=== PATIENT | female | born 1990 | race Caucasian/White ===

== ENCOUNTER 2017-03-28 06:50 | Outpatient (CLI) | payer OTHER, SELFPAY ==
[2017-03-28 07:15] VITALS: BMI 26.2
[2017-03-28 08:34] LABS: Hematocrit 36.1 % (37-47); Hemoglobin 12.4 g/dl (12.0-15.0); Mean Corp Hgb Conc 34.3 g/gl (32-36); Mean Corpuscular Hgb 32.5 pg (27.0-32.0); Mean Corpuscular Volume 94.8 fL (81-99); Mean Platelet Vol. 9.2 fl (6.2-12.0); Platelet Count 212 K/mm3 (150-450); RBC Distribution Width CV 13.7 % (11.6-14.6); RBC Distribution Width SD 45.2 fl (35.1-43.9); Red Blood Count 3.81 M/mm3 (4.2-5.4); White Blood Count 8.2 K/mm3 (4.4-11.0)
[2017-03-28 08:48] LABS: Scan Indicated on CBC? Y/N NO
[2017-03-28 08:59] LABS: Fibrinogen 357 mg/dl (203-444)
--- NOTE | 2017-03-28 10:06 | OB.TRI.NOTE ---
History of Present Illness Date of Service: 03/28/17 Was patient seen by the physician?: Yes Reason For Visit: BLEEDING Date of Service: 03/28/17 Gestational age: 23 week History of Present Illness: 26 yo @ 23 weeks with a history of marginal previa presents with brown vaginal bleeding this morning. she also almost fell yesterday and hit her abdomen but no abdominal pain since or regular ctx. She denies any recent intercourse and feels good movement Home Medications Medication Instructions Recorded 1 tab PO QDAY 02/17/17 vitamin,calcium,[id number] acid tablet Allergies red dye Allergy (Verified 03/17/17 13:26) Unknown
== END 2017-03-28 09:30 | disposition home or self-care (01) ==
LOC: WPOUT 07:04 → WP 07:04
PROVIDERS: Family Provider Family Medicine; PCP Family Medicine; Visit Provider Obstetrics & Gynecology
DX: O44.32 Partial placenta previa with hemorrhage, second trimester (principal); Z3A.23 23 weeks gestation of pregnancy
CPT/HCPCS: 36415; 59025; 59050; 85027; 85384; 99218; G0378

== ENCOUNTER → 2017-03-31 14:09 | Outpatient (CLI) | payer OTHER, SELFPAY ==
[2017-03-31 15:09] LABS: Fibrinogen 332 mg/dl (203-444)
== END ==
PROVIDERS: Family Provider Family Medicine; PCP Family Medicine; Visit Provider Obstetrics & Gynecology
DX: O44.20 Partial placenta previa NOS or without hemorrhage, unspecified trimester (principal); Z3A.00 Weeks of gestation of pregnancy not specified
CPT/HCPCS: 36415; 85384

== ENCOUNTER → 2017-04-19 11:42 | Outpatient (CLI) | payer OTHER, SELFPAY ==
[2017-04-19 13:19] LABS: Absolute Lymphocyte Count 1.76 X10^3/ul (0.83-4.51); Absolute Neutrophil Count 6.9 X10^3/uL (2.0-7.7); Basophil# 0.02 X10^3/uL; Basophil% 0.2 % (0-1); Eosinophil# 0.11 X10^3/uL; Eosinophils% 1.2 % (0-5); Hematocrit 36.2 % (37-47); Hemoglobin 12.1 g/dl (12.0-15.0); Lymphocyte # 1.76 X10^3/ul (4.0); Lymphocyte % 18.5 % (19-41); Mean Corp Hgb Conc 33.4 g/gl (32-36); Mean Corpuscular Hgb 31.9 pg (27.0-32.0); Mean Corpuscular Volume 95.5 fL (81-99); Mean Platelet Vol. 9.6 fl (6.2-12.0); Monocyte% 7.3 % (0-10); Neutrophil # 6.89 X10^3/uL (2.7-7.7); Neutrophil % 72.3 % (47-70); POSITIVE COUNT NO; POSITIVE DIFFERENTIAL NO; POSITIVE MORPHOLOGY NO; Platelet Count 234 K/mm3 (150-450); RBC Distribution Width CV 13.5 % (11.6-14.6); Red Blood Count 3.79 M/mm3 (4.2-5.4); White Blood Count 9.5 K/mm3 (4.4-11.0)
[2017-04-19 13:36] LABS: Glucose Challenge Gest 1H 50g 77 mg/dL (70-140)
== END ==
PROVIDERS: Family Provider Family Medicine; PCP Family Medicine; Visit Provider Obstetrics & Gynecology
DX: Z34.01 Encounter for supervision of normal first pregnancy, first trimester (principal)
CPT/HCPCS: 36415; 82950; 85025

== ENCOUNTER → 2017-04-21 18:14 | Outpatient (CLI) | payer OTHER, SELFPAY | PROVIDERS: Family Provider Family Medicine; PCP Family Medicine; Visit Provider Obstetrics & Gynecology | DX: Z34.90 Encounter for supervision of normal pregnancy, unspecified, unspecified trimester (principal) | CPT/HCPCS: 87077; 87086; 87088; 87186 ==

== ENCOUNTER → 2017-05-03 12:21 | Outpatient (CLI) | payer OTHER, SELFPAY ==
--- NOTE | 2017-05-03 12:21 | US_ITS ---
STUDY: SECOND AND THIRD TRIMESTER OBSTETRICAL ULTRASOUND - LIMITED REASON FOR EXAM: Female, 26 years old. Follow-up low-lying placenta. LMP: 10/17/2016 PRIOR ULTRASOUND: 02/28/2017. TECHNIQUE: Transabdominal ultrasound evaluation was performed. FINDINGS: There is a single intrauterine fetus. The fetus is in a cephalic presentation. There is demonstrated cardiac activity with a heart rate of 142 bpm. There is a normal amniotic fluid volume. The largest amniotic fluid pocket measures 3.1 cm. The amniotic fluid index (ARASH) is 9.7 cm. The placenta is anterior in location and is not low lying. There are Grade 1 placental changes. The cervix measures 4.6 cm in length. BIOMETRY: BPD: 7.1: 28 weeks, 4 days HC: 26.4: 28 weeks, 6 days AC: 24.1: 28 weeks, 3 days FL: 5.5: 29 weeks, 2 days Age by LMP: 26 weeks, 2 days. NATIVIDAD by LMP: 07/24/2017. age by prior US: 26 weeks, 5 days. NATIVIDAD by prior US: 07/21/2017. age by current US: 28 weeks, 6 days. NATIVIDAD by current US: 07/20/2017. Estimated weight: 1269 grams, +/- 185 grams, 53 percentile. Gender: US/OB Limited With Biometrics IMPRESSION: Single live fetus in a vertex presentation. survey not performed on this exam. Placenta is grade 1 and is no longer low-lying. Cervix is closed. age by prior US: 26 weeks, 5 days. NATIVIDAD by prior US: 07/21/2017. Estimated weight: 1269 grams, +/- 185 grams, 53 percentile. Electronically Signed: Pepe Campo MD at 8:56 EDT , Service support ,
== END ==
PROVIDERS: Family Provider Family Medicine; PCP Family Medicine; Visit Provider Obstetrics & Gynecology
DX: O44.20 Partial placenta previa NOS or without hemorrhage, unspecified trimester (principal); Z3A.00 Weeks of gestation of pregnancy not specified
CPT/HCPCS: 76816

== ENCOUNTER → 2017-05-05 17:53 | Outpatient (CLI) | payer OTHER, SELFPAY | PROVIDERS: Family Provider Family Medicine; PCP Family Medicine; Visit Provider Nurse Practitioner Women's Health | DX: O23.42 Unspecified infection of urinary tract in pregnancy, second trimester (principal); Z3A.00 Weeks of gestation of pregnancy not specified | CPT/HCPCS: 87086; 87088 ==

== ENCOUNTER → 2017-06-20 12:18 | Outpatient (CLI) | payer OTHER, SELFPAY ==
--- NOTE | 2017-06-20 12:19 | US_ITS ---
STUDY: SECOND AND THIRD TRIMESTER OBSTETRICAL ULTRASOUND - LIMITED REASON FOR EXAM: Female, 26 years old. Small for gestational age. Evaluate growth. LMP: October 17, 2016. PRIOR ULTRASOUND: OB ultrasound May 03, 2017. TECHNIQUE: Transabdominal ultrasound evaluation was performed. FINDINGS: There is a single intrauterine fetus. The fetus is in a cephalic presentation. There is demonstrated cardiac activity with a heart rate of 153 bpm. There is a normal amniotic fluid volume. The largest amniotic fluid pocket measures 4.26 cm. The amniotic fluid index (ARASH) is 11.9 cm. The placenta is anterior in location and is not low lying. There are Grade 2 placental changes. The cervix measures 4.8 cm cm in length and is closed. Adnexa are not visualized. BIOMETRY: BPD: 8.56 cm: 34 weeks, 4 days HC: 31.14 cm: 34 weeks, 6 days AC: 30.72 cm: 34 weeks, 5 days FL: 6.87 cm: 35 weeks, 2 days OFD: 10.92 cm: 35 weeks, 1 days CI: 78% FL/BPD: 80% FL/AC: 22% HC/AC: 1.01 Age by LMP: 35 weeks, 1 days. NATIVIDAD by LMP: July 24, 2017. age by prior US: 35 weeks, 5 days. NATIVIDAD by prior US: July 20, 2017. age by current US: 34 weeks, 6 days. NATIVIDAD by current US: July 26, 2017. Estimated weight: 2527 grams, +/- 369 grams, 38 percentile. US/OB Limited With Biometrics IMPRESSION: 1. Single living intrauterine fetus in cephalic presentation at estimated gestational age of 34 weeks, 6 days. By today's study, the estimated date of delivery is July 26, 2017, compared with July 20, 2017 by previous exam in July 24, 2017 by LMP. 2. Estimated weight is 2527 g. 3. The cervix is closed. Cervical length is 4.8 cm. 4. Normal amniotic fluid volume with an index of 11.9 cm. 5. Grade 2 anterior placenta is not low-lying. Electronically Signed: Jerry Quinones MD at 14:50 EDT , Service support ,
== END ==
PROVIDERS: Family Provider Family Medicine; PCP Family Medicine; Visit Provider Nurse Practitioner Women's Health
DX: O36.5930 Maternal care for other known or suspected poor fetal growth, third trimester, not applicable or unspecified (principal); Z3A.00 Weeks of gestation of pregnancy not specified
CPT/HCPCS: 76816

== ENCOUNTER → 2017-06-30 18:49 | Outpatient (CLI) | payer OTHER, SELFPAY ==
[2017-06-30 21:18] LABS: Group B Strep DNA By PCR Negative (Negative); Internal Control PASS; Probe Check PASS; Specimen Processing Control PASS
== END ==
PROVIDERS: Family Provider Family Medicine; PCP Family Medicine; Visit Provider Nurse Practitioner Women's Health
DX: Z34.90 Encounter for supervision of normal pregnancy, unspecified, unspecified trimester (principal)
CPT/HCPCS: 87081; 87653

== ENCOUNTER 2017-07-20 08:20 | Outpatient (CLI) | payer OTHER, SELFPAY ==
--- NOTE | 2017-07-20 08:20 | DT_ITS ---
This patient was seen during an EMR downtime July 18, 2017 - July 25, 2017. This patient may have a combination of paper and electronic documentation or all paper documentation. All documentation is viewable within the e-chart portion of [employer] for each patient visit.
== END 2017-07-20 09:25 | disposition home or self-care (01) ==
LOC: WPOUT 17:23
PROVIDERS: Family Provider Family Medicine; PCP Family Medicine; Visit Provider Obstetrics & Gynecology
DX: O47.9 False labor, unspecified (principal); Z3A.00 Weeks of gestation of pregnancy not specified
CPT/HCPCS: 59025; 59050; 99218; J7120; A4216; G0378

== ENCOUNTER 2017-07-21 08:19 | Inpatient (IN) | payer OTHER, SELFPAY ==
--- NOTE | 2017-07-07 07:20 | PCM.HP.OB ---
- Problem List (1) ASCUS with positive high risk HPV Status: Acute Comment: neg colp. repeat pap PP (2) screening encounter Status: Acute Comment: Sequential Screen Negative- Reviewed by [facility] (3) Marginal placenta previa Status: Acute (4) Rubella non-immune status, antepartum Status: Acute Comment: MMR PP (5) Supervision of normal Status: Acute Qualifiers: Comment: PRR NATIVIDAD 07/24/17 Rusty; Boy: Jean Carlos History Allergies red dye Allergy (Verified 06/30/17 13:14) Unknown Smoking Status: Never smoker
--- NOTE | 2017-07-21 08:19 | DT_ITS ---
This patient was seen during an EMR downtime July 18, 2017 - July 25, 2017. This patient may have a combination of paper and electronic documentation or all paper documentation. All documentation is viewable within the e-chart portion of [employer] for each patient visit.
[2017-07-25 11:23] LABS: Hematocrit 37.8 % (37-47); Mean Corp Hgb Conc 34.4 g/gl (32-36); Mean Corpuscular Hgb 32.3 pg (27.0-32.0); Mean Corpuscular Volume 93.8 fL (81-99); Mean Platelet Vol. 10.2 fl (6.2-12.0); Platelet Count 236 K/mm3 (150-450); RBC Distribution Width CV 13.8 % (11.6-14.6); Red Blood Count 4.03 M/mm3 (4.2-5.4); Scan Indicated on CBC? Y/N NO; White Blood Count 13.6 K/mm3 (4.4-11.0)
== END 2017-07-22 18:00 | disposition home or self-care (01) | DRG 775 ==
PROVIDERS: Admitting Provider Obstetrics & Gynecology; Family Provider Family Medicine; PCP Family Medicine; Visit Provider Obstetrics & Gynecology
DX: O70.0 First degree perineal laceration during delivery (principal); Z3A.39 39 weeks gestation of pregnancy; Z37.0 Single live birth
CPT/HCPCS: 59025; 59050; 85027; 86850; 86900; 99218; J7120; A4216; G0378

== ENCOUNTER 2017-07-29 15:15 | Outpatient (CLI) | payer OTHER, SELFPAY | END 2017-07-29 16:15 | disposition home or self-care (01) | LOC: WPOUT 15:18 → WP 15:18 | PROVIDERS: Family Provider Family Medicine; PCP Family Medicine; Visit Provider Obstetrics & Gynecology | DX: Z39.1 Encounter for care and examination of lactating mother (principal) | CPT/HCPCS: 96152 ==

== ENCOUNTER 2017-08-01 15:15 | Outpatient (CLI) | payer OTHER, SELFPAY | END 2017-08-01 15:30 | disposition home or self-care (01) | LOC: WPOUT 15:18 → WP 15:19 | PROVIDERS: Family Provider Family Medicine; PCP Family Medicine; Visit Provider Obstetrics & Gynecology | DX: Z00.00 Encounter for general adult medical examination without abnormal findings (principal) ==

== ENCOUNTER 2017-08-25 16:30 | Outpatient (CLI) | payer OTHER, SELFPAY | END 2017-08-25 17:30 | disposition home or self-care (01) | LOC: WPOUT 16:35 → WP 16:36 | PROVIDERS: Family Provider Family Medicine; PCP Family Medicine; Visit Provider Obstetrics & Gynecology | DX: Z39.1 Encounter for care and examination of lactating mother (principal) | CPT/HCPCS: 96152 ==

== ENCOUNTER → 2017-08-25 17:30 | Outpatient (CLI) | payer OTHER, SELFPAY ==
[2017-09-01 09:59] LABS: HPV Reflexed? NOT INDICATED
== END ==
PROVIDERS: Family Provider Family Medicine; PCP Family Medicine; Visit Provider Obstetrics & Gynecology
DX: Z12.4 Encounter for screening for malignant neoplasm of cervix (principal)
CPT/HCPCS: 88175; G0145

== ENCOUNTER → 2017-08-25 17:30 | Outpatient (CLI) | payer OTHER, SELFPAY | PROVIDERS: Visit Provider Obstetrics & Gynecology | DX: Z12.4 Encounter for screening for malignant neoplasm of cervix (principal) ==

== ENCOUNTER → 2017-09-01 14:05 | Outpatient (CLI) | payer OTHER, SELFPAY ==
--- NOTE | 2017-09-01 14:06 | US_ITS ---
STUDY: ULTRASOUND BREAST - RIGHT REASON FOR EXAM: Female, 26 years old. Right breast lump. TECHNIQUE: Axial and longitudinal images of the RIGHT breast were performed with a high resolution ultrasound transducer. COMPARISON: None. FINDINGS: RIGHT Breast: There is a 5.7 cm x 6.8 cm x 1.1 cm cyst at the 12:00 position of breast 1 cm from the nipple. Medial to the palpable abnormality, #3 smaller cysts. The larger measures 2 cm x 1.3 cm. US/Breast Limited Unilateral IMPRESSION: Breast cysts. The largest measures 5.7 cm x 6.8 cm x 4.1 cm. This corresponds to the palpable abnormality. ASSESSMENT CATEGORY: BIRADS Category 2: Benign. A letter regarding these results will be sent to the patient by the facility within 30 days. Electronically Signed: Rojelio Mcmullen MD at 7:54 EDT Tel [phone], Service support ,
== END ==
PROVIDERS: Family Provider Family Medicine; PCP Family Medicine; Visit Provider Obstetrics & Gynecology
DX: N63.10 Unspecified lump in the right breast, unspecified quadrant (principal)
CPT/HCPCS: 76642

== ENCOUNTER 2017-12-15 15:45 | Outpatient (RCR) | payer OTHER, SELFPAY ==
--- NOTE | 2017-05-02 12:19 | MASS.EVAL ---
Massage Therapy Evaluation: Evaluation Date: 05/02/2017 The patient is a 26 y.o. female, referred by Dr. May with a diagnosis of low back pain. The patient is 28 weeks with a due date of July 24, 2017. She presents today with symptoms of aching primarily through the low back but also in the neck and shoulders. She attributes the low back ache to . The neck and shoulder tension and aching are fairly constant. 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 Work is also a contributing factor to the low back pain. She rates her overall health to be in good condition with no limitations to daily living activities. She list no medications other than vitamins. Goals: 1. decrease muscle tension 2. decrease low back pain 3. promote relaxation Her first treatment consisted of a one hour massage using moderate to deep pressure to the upper body. She has very high tension through the neck, shoulders, interscapular area and forearms with many knots throughout. She also had tension bilaterally through the hips. She responded very well to treatment. There was a moderate decrease to over all muscle tension. I feel that she is a good candidate for massage at this time. I plan on seeing her on an as needed basis for a total of 10 one hour massages. Yahaira Alonso LMT
--- NOTE | 2017-07-19 10:45 | DT_ITS ---
This patient was seen during an EMR downtime July 18, 2017 - July 25, 2017. This patient may have a combination of paper and electronic documentation or all paper documentation. All documentation is viewable within the e-chart portion of [employer] for each patient visit.
--- NOTE | 2018-02-02 13:00 | DS.PCM_ITS ---
Massage Therapy Discharge Summary: Initial Evaluation: 05/02/2017 Diagnosis: Back pain No. of Visits: 7 of Date of last visit: 12/15/2017 Goals: Decreased low back pain Decreased overall muscle tension Decreased stress This patient is being discharged from our care at the [facility]. Thank you, Yahaira Alonso LMT
== END 2017-12-15 19:00 | disposition home or self-care (01) ==
LOC: MASS 15:45
PROVIDERS: Family Provider Family Medicine; PCP Family Medicine; Visit Provider Obstetrics & Gynecology
DX: M54.9 Dorsalgia, unspecified (principal)
CPT/HCPCS: 97124

== ENCOUNTER → 2019-03-30 16:44 | Outpatient (CLI) | payer OTHER, SELFPAY ==
[2019-03-25 11:34] VITALS: BMI 25.2
== END ==
PROVIDERS: PCP Family Medicine; Referring Provider Obstetrics & Gynecology; Visit Provider Obstetrics & Gynecology
DX: O20.0 Threatened abortion (principal); Z3A.00 Weeks of gestation of pregnancy not specified
CPT/HCPCS: 36415; 84702; 86850; 86900; 86901

== ENCOUNTER → 2019-04-01 16:22 | Outpatient (CLI) | payer OTHER, SELFPAY ==
[2019-03-25 11:34] VITALS: BMI 25.2
== END ==
PROVIDERS: PCP Family Medicine; Visit Provider Obstetrics & Gynecology
DX: O20.0 Threatened abortion (principal); Z3A.00 Weeks of gestation of pregnancy not specified
CPT/HCPCS: 84702

== ENCOUNTER → 2019-04-05 13:51 | Outpatient (CLI) | payer OTHER, SELFPAY ==
[2019-03-25 11:34] VITALS: BMI 25.2
--- NOTE | 2019-04-05 13:52 | US_ITS ---
STUDY: FIRST TRIMESTER OBSTETRICAL ULTRASOUND REASON FOR EXAM: Female, 28 years old SPOTTING/THREATENED AB LMP: February 27, 2019. TECHNIQUE: Transvaginal TECHNICAL QUALITY: Adequate. PRIOR ULTRASOUND: None. FINDINGS: There is visualization of a single gestational sac in a normal intrauterine position. The mean sac diameter (MSD) measures 2.7 cm, indicating an estimated gestational age (EGA) of 7 weeks, 5 days. The gestational sac shape is within normal limits. There is a visualized yolk sac. The yolk sac measures 3 mm. The placenta is non-visualized. There is visualization of a live embryo. The crown-rump length (CRL) measures 1.4 cm, indicating an estimated gestational age (EGA) of 7 weeks, 5 days. There is demonstrated cardiac activity with a heart rate of 150 bpm. The estimated gestation age (EGA) by LMP is 7 weeks, 2 days. The estimated date of delivery (NATIVIDAD) by LMP is November 20, 2019. The estimated gestation age (EGA) by US is 7 weeks, 5 days. The estimated date of delivery (NATIVIDAD) by US is November 17, 2019. The uterus measures 10 cm x 6.9 cm x 6.1 cm. There is no demonstrated uterine fibroid. The cervix is closed. The right ovary measures 4 cm x 2 cm x 2 cm. There is no right ovarian cyst. There is no visualized right adnexal mass or complex lesion. The left ovary measures 2.8 cm x 1.4 cm x 1.6 cm. There is no left ovarian cyst. There is no visualized left adnexal mass or complex lesion. There is no fluid in the cul de sac. US/Init OB < 14Wks US IMPRESSION: Single live intrauterine gestation with a mean gestational age of 7 weeks and 5 days. Electronically Signed: Rojelio Mcmullen, at 12:32 EST , Service support ,
== END ==
PROVIDERS: PCP Family Medicine; Referring Provider Obstetrics & Gynecology; Visit Provider Obstetrics & Gynecology
DX: Z34.80 Encounter for supervision of other normal pregnancy, unspecified trimester (principal)
CPT/HCPCS: 76801

== ENCOUNTER → 2019-04-19 | Outpatient (CLI) | payer OTHER, SELFPAY ==
[2019-04-19 11:56] VITALS: BMI 25.2
[2019-04-19 19:34] LABS: Amphetamine Urine VISTA NEGATIVE (<1000 ng/mL); Barbiturate Urine VISTA NEGATIVE (< 200 ng/mL); Benzodiazepine Urine VISTA NEGATIVE (< 200 ng/mL); Cocaine Urine VISTA NEGATIVE (< 300 ng/mL); Ecstacy Urine VISTA NEGATIVE (< 500 ng/mL); Methadone Urine VISTA NEGATIVE (< 300 ng/mL); PCP Urine VISTA NEGATIVE (< 25 ng/mL); THC Urine VISTA NEGATIVE (< 50 ng/mL); Vista UDS pH Range 6
[2019-04-19 20:07] LABS: Chlamydia Trachomatis by PCR Negative (Negative); Neisserai gonorrhoeae by PCR Negative (Negative); Probe Check PASS; Sample Adequacy Control PASS; Specimen Processing Control PASS
[2019-04-24 17:13] LABS: HPV APTIMA, High Risk Negative (Negative)
== END | disposition home or self-care (01) ==
LOC: LABSPEC 16:50
PROVIDERS: PCP Family Medicine; Referring Provider Obstetrics & Gynecology; Visit Provider Obstetrics & Gynecology
DX: Z34.90 Encounter for supervision of normal pregnancy, unspecified, unspecified trimester (principal); Z12.4 Encounter for screening for malignant neoplasm of cervix
CPT/HCPCS: 80307; 87086; 87491; 87591; 87624; 88175; G0145

== ENCOUNTER → 2019-04-26 13:21 | Outpatient (CLI) | payer OTHER, SELFPAY ==
[2019-04-19 11:56] VITALS: BMI 25.2
[2019-04-26 14:29] LABS: NATERA MAILED SPECIMEN
[2019-04-26 17:55] LABS: Absolute Neutrophil Count 6.7 X10^3/uL (2.0-7.7); Basophil# 0.03 X10^3/uL; Basophil% 0.3 % (0-1); Eosinophil# 0.09 X10^3/uL; Eosinophils% 0.9 % (0-5); Hematocrit 40.5 % (37-47); Hemoglobin 13.3 g/dL (12.0-15.0); Lymphocyte % 22.9 % (19-41); Mean Corp Hgb Conc 32.8 g/dL (32-36); Mean Corpuscular Hgb 30.4 pg (27.0-32.0); Mean Corpuscular Volume 92.7 fL (81-99); Mean Platelet Vol. 9.9 fl (6.2-12.0); Monocyte# 0.59 X10^3/uL; Monocyte% 6.1 % (0-10); NRBC Flagged by Analyzer 0 % (0-5); Neutrophil # 6.69 X10^3/uL (2.7-7.7); Neutrophil % 69.6 % (47-70); Platelet Count 290 K/mm3 (150-450); RBC Distribution Width SD 44.3 fl (35.1-43.9); Red Blood Count 4.37 M/mm3 (4.2-5.4); White Blood Count 9.6 K/mm3 (4.4-11.0)
[2019-04-27 09:55] LABS: HIV - WCH Non-Reactive (Nonreactive); Hepatitis B Surface Antigen Non-Reactive (Nonreactive); Hepatitis C Antibody Non-Reactive (Nonreactive); Rubella IgG 18.9 IU/mL
[2019-05-03 02:23] LABS: Rapid Plasmin Reagin (RPR) NONREACTIVE (NONREACTIVE)
== END ==
PROVIDERS: PCP Family Medicine; Referring Provider Obstetrics & Gynecology; Visit Provider Obstetrics & Gynecology
DX: Z34.81 Encounter for supervision of other normal pregnancy, first trimester (principal)
CPT/HCPCS: 36415; 85025; 86592; 86703; 86762; 86803; 86850; 86900; 86901; 87340

== ENCOUNTER → 2019-07-05 07:43 | Outpatient (CLI) | payer OTHER, SELFPAY ==
[2019-05-17 11:25] VITALS: BMI 24.7
[2019-06-14 10:42] VITALS: BMI 25.2
--- NOTE | 2019-07-05 07:44 | US_ITS ---
STUDY: SECOND AND THIRD TRIMESTER OBSTETRICAL ULTRASOUND REASON FOR EXAM: Female, 28 years old anatomy LMP: TECHNIQUE: Transabdominal TECHNICAL QUALITY: Adequate. PRIOR ULTRASOUND: None. FINDINGS: There is a single intrauterine fetus. The fetus is in a cephalic presentation. There is demonstrated cardiac activity with a heart rate of 131 bpm. There is a normal amniotic fluid volume. The largest amniotic fluid pocket measures 3.6 x 6.2 cm.. The placenta is anterior There are Grade 0 placental changes. The cervix measures 4.4 cm in length. The bilateral adnexal regions are normal. BIOMETRY: BPD: 5.2 cm: 21 weeks, 4 days HC: 18.8 cm: 21 weeks, 0 days AC: 15.3 cm: 20 weeks, 3 days FL: 3.5 cm: 20 weeks, 6 days CI: 0.82 FL/BPD: 0.67 FL/HC: FL/AC: 0.23 HC/AC: 1.23 age by current US: 21 weeks, 0 days. NATIVIDAD by current US: November 15, 2019. Estimated weight: 376 grams, +/- 56 grams, 71 %. age by prior US: weeks, days. NATIVIDAD by prior US: . Age by LMP: 20 weeks, 2 days. NATIVIDAD by LMP: November 20, 2019. ANATOMY: Cranium: Normal lateral ventricles: 0.6 cm. Normal choroid plexus. Normal cerebellum: 2.1 cm. Normal cisterna magna: 0.3 cm. Normal face, nose and lips. Chest: Normal 4-chamber heart. Abdomen/Pelvis: Normal diaphragm. Normal stomach. Normal abdominal wall. Normal cord insertion. Normal 3 vessel cord. Normal kidneys. Normal bladder. Spine: Normal cervical spine. Normal thoracic spine. Normal lumbar spine. Normal sacrum. Extremities: Normal bilateral upper extremities. Normal bilateral lower extremities. US/OB Anatomy Scan IMPRESSION: Viable intrauterine gestation approximately 21 weeks gestational age. Findings as above Electronically Signed: Sushil Funes MD at 16:58 EDT , Service support ,
== END ==
PROVIDERS: PCP Family Medicine; Referring Provider Obstetrics & Gynecology; Visit Provider Obstetrics & Gynecology
DX: Z34.90 Encounter for supervision of normal pregnancy, unspecified, unspecified trimester (principal)
CPT/HCPCS: 76805

== ENCOUNTER → 2019-07-19 09:09 | Outpatient (CLI) | payer OTHER, SELFPAY ==
[2019-07-11 08:47] VITALS: BMI 25.2
[2019-07-19 10:17] LABS: NATERA MAILED SPECIMEN
== END ==
PROVIDERS: PCP Family Medicine; Referring Provider Obstetrics & Gynecology; Visit Provider Obstetrics & Gynecology
DX: Z31.430 Encounter of female for testing for genetic disease carrier status for procreative management (principal)
CPT/HCPCS: 36415

== ENCOUNTER → 2019-08-30 10:22 | Outpatient (CLI) | payer OTHER, SELFPAY ==
[2019-08-09 09:09] VITALS: BMI 25.2
[2019-08-30 10:40] LABS: Absolute Lymphocyte Count 1.68 X10^3/uL (0.83-4.51); Absolute Neutrophil Count 5.7 X10^3/uL (2.0-7.7); Basophil# 0.02 X10^3/uL; Basophil% 0.3 % (0-1); Eosinophil# 0.06 X10^3/uL; Eosinophils% 0.8 % (0-5); Hematocrit 36.5 % (37-47); Hemoglobin 12.4 g/dL (12.0-15.0); Lymphocyte # 1.68 X10^3/ul (4.0); Mean Corpuscular Volume 94.1 fL (81-99); Mean Platelet Vol. 9.1 fl (6.2-12.0); Monocyte# 0.54 X10^3/uL; Monocyte% 6.8 % (0-10); NRBC Flagged by Analyzer 0 % (0-5); Neutrophil # 5.66 X10^3/uL (2.7-7.7); Neutrophil % 70.6 % (47-70); Platelet Count 248 K/mm3 (150-450); RBC Distribution Width CV 12.9 % (11.6-14.6); RBC Distribution Width SD 43.9 fl (35.1-43.9); Red Blood Count 3.88 M/mm3 (4.2-5.4)
[2019-08-30 11:04] LABS: Glucose Challenge Gest 1H 50g 118 mg/dL (70-140)
== END ==
PROVIDERS: PCP Family Medicine; Referring Provider Obstetrics & Gynecology; Visit Provider Obstetrics & Gynecology
DX: Z34.90 Encounter for supervision of normal pregnancy, unspecified, unspecified trimester (principal)
CPT/HCPCS: 36415; 82950; 85025

== ENCOUNTER → 2019-10-25 | Outpatient (CLI) | payer OTHER, SELFPAY ==
[2019-10-25 10:58] VITALS: BMI 28.7
== END | disposition home or self-care (01) ==
LOC: LABSPEC 18:04
PROVIDERS: PCP Family Medicine; Visit Provider Obstetrics & Gynecology
DX: Z34.90 Encounter for supervision of normal pregnancy, unspecified, unspecified trimester (principal)
CPT/HCPCS: 87081

== ENCOUNTER 2019-10-29 08:30 | Outpatient (RCR) | payer OTHER, SELFPAY ==
[2019-09-28 08:44] VITALS: BMI 28.1
[2019-10-11 11:03] VITALS: BMI 25.2
--- NOTE | 2019-10-15 15:18 | MASS.EVAL ---
Massage Therapy Evaluation: Initial Evaluation Date: 10/15/19 SUBJECTIVE: Rubia is a 29 year old female who was referred to the [facility] facility for a massotherapy evaluation by Marisela Whitney with the diagnosis of low back pain. She presents today with the symptoms of pain, stiffness and tension in the neck, mid back, low back and hips. Rubia reports having a past medical history of neck, shoulders and back pain. She is currently 35 weeks and she reports having increased low back and hip pain as the progresses. OBJECTIVE: Upon observation Rubia has some posture issues related to her with her head and shoulders forward from the neutral position and hips anteriorly rotated. After examination and palpation, I found Rubia to have high muscle tension with tenderness and myofascial restrictions in her sub occipitals, levator scapulae, trapezius, rhomboids, scalenes, and thoracic paraspinals. Her QL?s, lumbar paraspinals, piriformis, glute medius and minimus all were very tight with fascial restrictions, tender points and trigger points. The first treatment consisted of a one hour massage to her upper body with myofascial release, muscle stripping, trigger point compression techniques, and cervical manual traction. ASSESSMENT: I feel that Rubia is a good candidate for massotherapy at this time. She had a favorable response to the first treatment with reduction in her muscle aches, pain and tension. She also had improvement in her cervical flexibility and low back flexibility. PLAN: The plan of care was reviewed with the patient. The patient is to be seen on an as needed basis for a total of ten sessions with the recommendation of once every week for a one hour treatment.
--- NOTE | 2020-01-29 18:36 | MASS.DISCH ---
Massage Therapy Discharge Summary: Discharge Date: 01/29/2020 Rubia was seen for a massotherapy evaluation on 10/15/2019 with the diagnosis of low back pain. She was treated with two sessions of massage therapy consisting of deep pressure soft tissue techniques, myofascial release and trigger point compression to her cervical, thoracic, lower back, lower extremities and hips. Rubia responded well to the therapy by reporting decreased tension and pain throughout her neck, shoulders, lower back and hips. Her goals for therapy were met throughout the treatment sessions. At this time this patient is being discharged from our care at [facility] facility.
== END 2019-10-29 19:00 | disposition home or self-care (01) ==
LOC: MASS 08:30
PROVIDERS: PCP Family Medicine; Referring Provider Nurse Practitioner Women's Health; Visit Provider Nurse Practitioner Women's Health
DX: M54.5 Low back pain (principal)
CPT/HCPCS: 97124

== ENCOUNTER 2019-11-08 23:00 | Inpatient (IN) | payer OTHER, SELFPAY ==
[2019-11-01 10:51] VITALS: BMI 25.2
[2019-11-08 11:07] VITALS: BMI 25.2
--- NOTE | 2019-11-08 13:53 | US_ITS ---
STUDY: ULTRASOUND BREAST - RIGHT REASON FOR EXAM: Female, 29 years old. Palpable lump in the right breast. TECHNIQUE: Axial and longitudinal images of the RIGHT breast were performed with a high resolution ultrasound transducer. # OF IMAGES: 23 COMPARISON: Comparison is made with prior ultrasound of the right breast dated 09/01/2017. FINDINGS: RIGHT Breast: The palpable abnormality corresponds to a 4.8 cm x 5.1 cm x 4.8 cm heterogeneous solid nodule with well-defined borders at the 8 to 9 o''clock position of the right breast. There is evidence of a increased vascularity. This may represent a fibroadenoma. Tissue diagnosis is recommended. US/Breast Limited Unilateral IMPRESSION: Abundant amount to correspond to a 4.8 cm x 5.1 cm x 4.8 cm solid heterogeneous nodule with increased vascularity as described. A biopsy is recommended. ASSESSMENT CATEGORY: BIRADS Category 4: Suspicious - Biopsy Should Be Considered. A letter regarding these results will be sent to the patient by the facility within 30 days. Electronically Signed: Rojelio Mcmullen, at 14:58 EDT , Service support ,
[2019-11-08 22:53] VITALS: BP 106/64; PULSE 60; PULSE 67; TEMP 36.5; O2SAT 97
[2019-11-08 23:20] VITALS: BMI 28.5
[2019-11-08] MEDS: Lactated Ringers 1,000 ML 50 ML IV (23:20)
[2019-11-08] MEDS: Lactated Ringers 500 ML 999 ML IV (23:21)
[2019-11-08 23:30] LABS: Absolute Lymphocyte Count 2.46 X10^3/uL (0.83-4.51); Absolute Neutrophil Count 5.8 X10^3/uL (2.0-7.7); Basophil# 0.02 X10^3/uL; Basophil% 0.2 % (0-1); Eosinophil# 0.07 X10^3/uL; Eosinophils% 0.8 % (0-5); Hematocrit 35.6 % (37-47); Lymphocyte # 2.46 X10^3/ul (4.0); Lymphocyte % 26.5 % (19-41); Mean Corp Hgb Conc 33.7 g/dL (32-36); Mean Corpuscular Hgb 31.7 pg (27.0-32.0); Mean Corpuscular Volume 93.9 fL (81-99); Mean Platelet Vol. 10.2 fl (6.2-12.0); Monocyte% 9.7 % (0-10); NRBC Flagged by Analyzer 0 % (0-5); Neutrophil # 5.79 X10^3/uL (2.7-7.7); Neutrophil % 62.4 % (47-70); Platelet Count 235 K/mm3 (150-450); RBC Distribution Width CV 13.5 % (11.6-14.6); RBC Distribution Width SD 46.6 fl (35.1-43.9); Red Blood Count 3.79 M/mm3 (4.2-5.4); White Blood Count 9.3 K/mm3 (4.4-11.0)
[2019-11-09] VITALS (40 sets, daily range): BP systolic 96–132; BP diastolic 46–93; PULSE 49–74; RESP 16–18; TEMP 36.6–37.6; O2SAT 94–98
[2019-11-09] MEDS: fentaNYL-bupivacaine (epidural) 100 ML BAG EPIDURAL (00:32)
--- NOTE | 2019-11-09 02:11 | HP.PCM_ITS ---
History and Physical Date of Admission: 11/09/19 Intake Vital Signs 11/08/19 BMI 25.2 11/08/19 Height 5 ft 3 in 11/08/19 Weight: 163 lb 4 oz 11/08/19 BMI 28.9 11/08/19 BP 102/78 Intake Visit Reasons: est ob 38w Digital Account Director Required: No Is patient in pain?: No Allergies red dye Allergy (Verified 11/08/19 11:06) Unknown Medications vitamin#30 30 mg iron-10 mg iron-folic acid 1 mg-omg3 capsule cap PO 04/19/19 [History Confirmed 11/08/19] esomeprazole magnesium 20 mg capsule,delayed release 20 mg PO DAILY #30 cap 06/06/19 [Rx Confirmed 11/08/19] Last Menstral Period: 10/17/16 Zika: Zika virus screening: Negative : No PFSH PFSH Medical History Bilateral breast cysts (Acute) Surgical History H/O right knee surgery (Acute) Status post surgical removal of ganglion cyst (Acute) Social History (Updated 11/08/19 @ 11:[address] Bernadette Linares MD) Smoking Status: Never smoker second hand exposure: No alcohol intake: never substance use type: does not use caffeine: No what type of physical activity do you participate in: other frequency: daily duration: 15-30 minutes/day seatbelt use: always do you feel safe at home: Yes additional social history: Spouse Rutsy Pregancy History 2 Elective abortions Hx Para 1 Spontaneous abortions Hx # Term Pregnancies Ectopic pregnancies Hx # Pregnancies Multiple births # of living children 1 Past Pregnancies Del. Date Name GA/Weeks Outcome Route Bth Weight Gen Labor Lgth Anesthesia Del Locatn Provider FOB 07/21/17 Jean Carlos 39 live - full term 7lbs 19.5in Male 12 hours epidural [facility] Rusty Delivery Date: 07/21/17 On 04/19/19 @ 11:47 Pooja Winter No complications Menigitis at 5 months old HPI est ob 38w: Details: CIERA DELACRUZ is a 29 year old who presents for routine OB visit. OB Visit NATIVIDAD Calculator Estimated Delivery Date Method Current WG Current Estimate 11/20/19 LMP (Certain) 38w 2d Expected Delivery Route/Plan Labor Preferences- labor support person: Rusty pain management options preferred: epidural cut cord/dad catch: cord : yes PP control planned: [] discussed possible routes of delivery and associated risks: discussed possible delivery modalities and possible indications for each including R/B/A of , VAVD, and CS. questions answered. special requests: none Specific Issue/Plans flu vaccine: given tdap vaccine: 08/29 rhogam: na LARC form signed: declined movement and labor precautions reviewed. Problem list reviewed and updated with the most current plan of care details and appropriate orders placed. Relevant counseling for the gestational age provided. Continue routine care and follow up unless otherwise noted in visit notes/problem list details Initial Weight: 139 lb Date EGA Weight BP Urine Prot Glucose FHR FuHt Pres Dilation Effaced St Visit Note 05/17/19 13w 2d 139 lb 6 oz (+6 oz) 104/62 Negative Negative 154 MH-NO VB, LOF. Some mild nausea/heartburn. NIPT and PNL reviewed. 06/14/19 17w 2d 144 lb 6 oz (+5 lb 6 oz) 108/60 Negative Negative 152 NO VB, LOF. Starting to feel flutters. MFM US scheduled. Heartburn resolved. MH-NO VB, LOF. Starting to feel flutters. M US scheduled. Heartburn resolved. 07/11/19 21w 1d 149 lb (+10 lb) 106/60 Negative Negative 140 20 SM- no vb lof good fm no regular ctx 08/09/19 25w 2d 152 lb 8 oz (+13 lb 8 oz) 98/72 140 25 Sm- no vb lof good fm reviewed testing results. 08/30/19 28w 2d 153 lb (+14 lb) 102/72 Negative Negative 140 28 Sm no vb lof good fm no regular ctx 09/13/19 30w 2d 152 lb (+13 lb) 110/70 Negative Negative 140 30 SM- no vb lof good fm no regular ctx 09/28/19 32w 3d 159 lb (+20 lb) 100/62 Negative Negative 139 32 MH-No VB, LOF. Good FM. 10/11/19 34w 2d 161 lb (+22 lb) 108/72 Negative Negative 140 33 SM- no vb lof good fm no regular ctx 10/25/19 36w 2d 162 lb (+23 lb) 94/62 Negative Negative 130 36 Cephalic SM- no vb lof good fm no regular ctx 11/01/19 37w 2d 162 lb (+23 lb) 96/64 Negative Negative 130 37 36 Cephalic 2.5 50 -2 SM- no vb lof good fm no regular ctx feels right breast lump- has had in the past after previous . imaging and consult ordered 11/08/19 38w 2d 163 lb 4 oz (+24 lb 4 oz) 102/78 Negative Negative 115 38 Cephalic 5 70 -2 GP - no VB, LOF, DFM. Irr egular contractions. COVID testing ordered. Diagnostics Diagnostics Diagnostics Glucose 1 Hr 50 gm 118 mg/dL (70-140) 08/30/19 Hgb 12.4 g/dL (12.0-15.0) 08/30/19 Hct 36.5 % (37-47) L 08/30/19 Details: HIV: Urine Culture: Sequential Screen: NIPT Screen: ROS Const Reports fatigue, Denies fever(s), Denies increased appetite, Denies weight gain Card Denies chest pain, Denies shortness of breath Resp Denies shortness of breath GI Denies constipation, Reports heartburn, Reports nausea, Reports vomiting Denies abnormal vaginal bleeding, Denies painful urination, Denies nipple discharge, Denies pelvic pain, Denies vaginal discharge, Denies vaginal odor, Denies vaginal itching Skin/Breast Reports breast pain, Reports breast swelling, Denies nipple discharge Psych Denies anxiety, Denies depression Endo Reports fatigue Exam Const General: cooperative, healthy appearing, comfortable, no acute distress, well developed, well groomed Nutritional Appearance: average body habitus, well nourished Orientation: alert, awake, oriented x3 HENMT Head: normal to inspection, normocephalic, atraumatic Eyes Pupils: PERRL, accommodation normal Resp Effort & Inspection: normal respiratory effort, able to speak in complete sentences, symmetric chest movement Cardio Rate: regular rate GI Palpation: soft, no guarding, no masses, nontender Skin General: no rashes or lesions noted, elasticity normal, turgor normal Neuro General: alert, awake, oriented x3 Cranial Nerves: CN's II-XI intact bilaterally, sense of smell intact, PERRL, accommodation normal, EOM intact bilaterally Speech: speech normal Gait: normal gait Psych Appearance: grossly normal, well kempt Mental Status: mental status grossly normal Mood: congruent mood Affect: normal affect Speech and Movement: speech and movement normal Attitude: cooperative Thought Process: normal Thought Content: normal Judgment: judgment good Results POC Urinalysis 2 Dip (Clinic) Office Urine Glucose Negative Last Edit by Sharon Carrera on 11/08/19 11:12 Office Urine Protein Negative Last Edit by Sharon Carrera on 11/08/19 11:12 Assessment & Plan Problems 1. Lump of right breast N63.10 breast us and general surgeyr consult ordered 2. Influenza vaccine administered Z23 10/25/2019sc 3. 38 weeks gestation of Z3A.38 NIPT low risk, pos carrier screening- FOB neg. Anatomy US normal. AFP normal carrier for pt. FOB carrier negative 01/25 4. Supervision of normal Z34.90 PRR NATIVIDAD 11/20/19 boy Talon VILLEGAS Jean Carlos Rusty Orders Orders: POC Urinalysis 2 Dip (Clinic) Today Coding Level of Care Code OB Routine Diagnoses Lump of right breast N63.10 Influenza vaccine administered Z23 38 weeks gestation of Z3A.38 ??Weeks of gestation: 38 weeks Supervision of normal Z34.90 UPDATE- I have seen the patient and performed any clinically relevant updates to the history and physical exam. Bernadette Linares MD
--- NOTE | 2019-11-09 02:15 | OP.PCM_ITS ---
Vaginal Delivery Maternal Presentation: Active Labor 29-year-old G2, P1 at 38 weeks gestation admitted in active labor. Patient made rapid cervical change to complete dilation without augmentation. Amniotic Membrane Rupture Type: Artificial Rupture of Membrane time: 0200 Amniotic Fluid Description: Clear Final NATIVIDAD: 11/20/19 Final NATIVIDAD Source: LMP Gestational age: 38 Weeks and 3 Days Date of Procedure: 11/09/19 Pre-Operative Diagnosis: Active labor Post-Operative Diagnosis: same Surgery/ Procedure Performed: Spontaneous Vaginal Delivery Type of Anesthesia: Epidural Description of Procedure: Patient began pushing and delivered the head in the DARWIN presentation. The head was delivered atraumatically and a loose nuchal cord ?1 was identified and delivered through. The anterior and posterior shoulders delivered without complication followed by the rest of the and the infant was placed on the maternal abdomen. Delayed cord clamping was employed for approximately 60 seconds. Cord was clamped and cut and gentle traction was applied to the cord and the placenta delivered spontaneously immediately following it was noted to be intact with three-vessel cord. The perineum and vagina were inspected and a second degree laceration was noted. EBL was 200 cc. Patient and infant tolerated delivery well. Presentation: Vertex Placental Delivery Description: Spontaneous Placenta Disposition: [facility] Cord Vessel Description: 3 Vessels Nuchal Cord Compression: Without compression Cord Entanglement: Around neck x 1, loose Estimated Blood Loss: 200 Infant A gender: Male Episiotomy Description: None Laceration: Perineal Extension/lac, 2nd degree Medications given after delivery: IV Pitocin, IM Methergin Complications: None Multi Select Codes - Urinary/Genital Urinary/Genital CPT Codes: 27633 Vaginal Delivery [facility]
[2019-11-09] MEDS: Oxytocin 30 units/NS 500 ml 30 UNITS/500 ML IV.SOLN 334 UNITS IV (02:40)
[2019-11-09] MEDS: Methylergonovine 0.2 MG/ML Ampul IM (02:44)
[2019-11-09] MEDS: Ondansetron 4 MG/2 ML Vial IV (04:24)
--- NOTE | 2019-11-09 05:11 | NURSING ---
pt has cyst on left breast, occuring during , pt has hx of cysts and removal x7
[2019-11-09] MEDS: 0.9% Saline Lock 10 ML Syringe IV (05:45)
--- NOTE | 2019-11-09 07:37 | NURSING ---
Pt and support person both CPR certified.
[2019-11-09] MEDS: Pantoprazole Sodium 20 MG Tablet PO (13:28)
[2019-11-10 03:00] VITALS: BP 98/61; PULSE 52; RESP 16; TEMP 36.6
[2019-11-10 07:39] VITALS: BP 99/63; PULSE 53; RESP 16; TEMP 36.5
--- NOTE | 2019-11-10 08:30 | PN.OBGYN_ITS ---
Subjective: Patient doing well without complaints. Tolerating PO. Pain well controlled. Ambulating and voiding without difficulty. Breast feeding well. Denies chest pain, shortness of breath, calf pain/swelling, fevers, chills, lightheadedness. Objective: Laboratory Tests 11/08/19 11/08/19 Range/Units 23:20 23:20 WBC 9.3 (4.4-11.0) K/mm3 RBC 3.79 L (4.2-5.4) M/mm3 Hgb 12.0 (12.0-15.0) g/dL Hct 35.6 L (37-47) % MCV 93.9 (81-99) fL MCH 31.7 (27.0-32.0) pg MCHC 33.7 (32-36) g/dL RDW Std Deviation 46.6 H (35.1-43.9) fl RDW Coeff of Rachel 13.5 (11.6-14.6) % Plt Count 235 (150-450) K/mm3 MPV 10.2 (6.2-12.0) fl Immature Gran % (Auto) 0.400 (0.0-0.9) % Neut % (Auto) 62.4 (47-70) % Lymph % (Auto) 26.5 (19-41) % Fisher % (Auto) 9.7 (0-10) % Eos % (Auto) 0.8 (0-5) % Baso % (Auto) 0.2 (0-1) % Absolute Neuts (auto) 5.8 (2.0-7.7) X10^3/uL Absolute Lymphs (auto) 2.46 (0.83-4.51) X10^3/uL Nucleated RBC % 0 (0-5) % Blood Type A POSITIVE Antibody Screen NEGATIVE - Physical Exam Vitals/I&O's: Vital Signs Temp Pulse Resp BP Pulse Ox 97.7 F L 53 L 16 99/63 96 11/10/19 07:39 11/10/19 07:39 11/10/19 07:39 11/10/19 07:39 11/09/19 16:42 Oxygen Delivery Method Room Air Weight: 166 lb Body Mass Index (BMI) 28.5 Intake and Output for Last 24 Hours 11/08/19 11/09/19 11/10/19 23:59 23:59 23:59 Intake Total 500.83 / 500.83 1053.33 / 1053.33 Output Total 300 / 300 1900 / 1900 Balance 200.83 / 200.83 -846.67 / -846.67 General: Alert, Oriented x3, Cooperative, No apparent distress, Well developed, Well nourished HEENT: Atraumatic, PERRLA, EOMI, Normocephalic Oral: Moist Mucosa Neck: Supple, No JVD Lungs: Normal air movement Cardiovascular: Regular rate Abdomen: Soft, Non Tender, Non-Distended, - - fundus firm Extremities: No edema, No Calf Tenderness Neurological: Cranial nerves II-XII grossly intact, Neuro grossly intact Psych/Mental Status: Normal Affect, Appropriate, Alert and oriented to time, place, person, mood and affect Current Medications Acetaminophen (Tylenol) 1,000 mg PO Q8H PRN PRN PRN Reason: Pain Score 1-3/10 Bisacodyl (Dulcolax) 10 mg RECTAL UD PRN PRN Reason: If no BM Dibucaine (Dibucaine) 1 applic TOPICAL TID PRN PRN; Protocol PRN Reason: Discomfort Hydrocortisone (Hytone) 1 applic TOPICAL TID PRN PRN; Protocol PRN Reason: Discomfort Methylergonovine Maleate (Methergine) 0.2 mg IM X1 PRN PRN Reason: Excess bleeding/uterine atony Last Admin: 11/09/19 02:44 Dose: 0.2 mg Documented by: Naproxen (Naprosyn) 500 mg PO Q8H PRN PRN PRN Reason: Pain Score 1-3/10 Ondansetron HCl (Zofran) 4 mg IV Q4H PRN PRN PRN Reason: Nausea Last Admin: 11/09/19 04:24 Dose: 4 mg Documented by: Oxycodone HCl (Oxyir) 5 - 10 mg PO Q4H PRN PRN PRN Reason: Pain Score 4-10/10 Pantoprazole Sodium (Protonix) 20 mg PO DAILY PERRI Last Admin: 11/09/19 13:28 Dose: 20 mg Documented by: Senna/Docusate Sodium (Senokot-S, Karen-Colace) 1 - 2 tablet PO DAILY PRN PRN PRN Reason: Constipation Simethicone (Mylicon) 80 mg PO PCHS PRN PRN Reason: Indigestion/Stomach pain Sodium Chloride () 5 - 15 ml IV UD PRN PRN Reason: SALINE FLUSH Last Admin: 11/09/19 05:45 Dose: 10 ml Documented by: Medical Necessity - Tobacco Use Smoking Status: Never smoker Assessment/Plan All Active Problems (Last Reviewed 11/08/19 @ 11:05 by Sharon Carrera) Lump of right breast (Acute) Influenza vaccine administered (Acute) (Acute) Supervision of normal (Acute) Herpes zoster (Resolved) Marginal placenta previa (Resolved) Marginal placenta previa (Resolved) Pharyngitis, acute (Resolved) s/p PPD #1 1. routine post delivery care 2. breast feeding- support given 3. rh positive 4. rubella immune
--- NOTE | 2019-11-10 08:33 | DCINST_ITS ---
Discharge Diet: No Restrictions Discharge Activity: Return to Normal Activity, May not drive while taking narcotic pain medications., May Shower May resume sexual activity in: 4-6 weeks Additional Activity Instructions:: Nothing in the vagina for 4-6 weeks. You may return to work/school in 6 weeks. Call your doctor if your incision/area has: Continuous Slow Oozing, Sudden Increased Bleeding, Increased Pain/ Swelling, Increased Redness, Foul Smelling Discharge Call your doctor if you observe: Fever of 101 or Higher, Coldness, Increased Pain Additional Instructions: If you experience any of the following, contact your healthcare provider. * Bleeding that soaks a pad every hour for 2 hours * Fever 100.4 or higher * Unrelieved incision or abdominal pain * Swelling, redness, discharge or bleeding from your incision or episiotomy site * Your incision begins to separate * Problems urinating (including inability to urinate or burning while urinating). * Visual changes * Severe headache * Flu-like symptoms * Pain or redness in one of both of your breasts * Pain, warmth, tenderness or swelling in your legs, especially the calf area * Frequent nausea and vomiting * Symptoms of depression or anxiety If you experience any of the following, call 911 or go to the nearest Emergency Room. * Chest pain * Problems breathing * Seizure activity * Partial or complete paralysis of a body part, slurred speech, weakness or drooping of the face, or a sudden inability to walk or hold your balance Allergies/Adverse Reactions: Allergies red dye Allergy (Verified 11/09/19 00:25) Unknown Medications to take at Discharge vitamin#30 30 mg iron-10 mg iron-folic acid 1 mg-omg3 capsule 1 cap PO DAILY 04/19/19 Esomeprazole Magnesium 20 mg PO DAILY 11/09/19 When: Call to make an appointment with your doctor in 6 weeks. If you had elevated Blood Pressure or 4th degree laceration you will need to be seen in 2 weeks. Primary Care Physician: Shonna Washington DO [Primary Care Provider] - Test Results: Test results from this visit will be discussed in further detail at your follow- up appointment, if applicable.
[2019-11-10 14:44] VITALS: BP 102/57; PULSE 60; RESP 16; TEMP 36.2
== END 2019-11-10 16:10 | disposition home or self-care (01) | DRG 807 ==
LOC: OPUS 23:06 → WP 23:06
PROVIDERS: Admitting Provider Obstetrics & Gynecology; PCP Family Medicine; Referring Provider Obstetrics & Gynecology; Visit Provider Obstetrics & Gynecology
DX: O69.81X0 Labor and delivery complicated by cord around neck, without compression, not applicable or unspecified (principal); Z37.0 Single live birth; Z3A.38 38 weeks gestation of pregnancy; O70.1 Second degree perineal laceration during delivery
CPT/HCPCS: 59025; 59050; 76642; 85025; 86850; 86900; 86901; 99218; J7120; A4216; G0378; J2405

== ENCOUNTER → 2019-11-21 | Outpatient (CLI) | payer OTHER, SELFPAY ==
[2019-11-21 09:35] VITALS: BMI 28.5
--- NOTE | 2019-11-21 09:45 | BRBX_PTH ---
PATIENT: CIERA DELACRUZ LOC: [facility] U#:[id number] AGE/SX: 29/F ROOM: RE11/21/[address]: Dr. Madhu Rubi MD : 1990 BED: DIS: 11/21/2019 SPEC #: [id number] RECD: 11/21/19 11:09 STATUS: JOHNIE REOlvin #: [id number] SALUD: 11/21/19 09:[address]: Madhu Rubi DEPT: SURGICAL PATHOLOGY RECD BY: Ramy Angel ENTERED: 11/21/19 11:26 SP TYPE: BREAST BX OTHR DR: DO Dr. Rachna Burch MD Tissues: Right breast, NOS Procedures: Surgery Specimen Level IV HEADER OPERATION: Ultrasound-guided mammotome right breast biopsy versus cyst aspiration PRE-OP DIAGNOSIS: Right breast lump TISSUE SUBMITTED: Right breast biopsy ISCHEMIC TIME: 1 minute FIXATION TIME: 9.5 hours MICROSCOPIC DIAGNOSIS Right breast, ultrasound-guided needle core biopsy: Consistent with lactating adenoma. AM:yamilet 11/22/19 MICROSCOPIC DESCRIPTION Slides are reviewed. GROSS DESCRIPTION Received in fixative is one container labeled with the patient's name and designated right breast biopsy. The specimen consists of multiple irregular fragments of red-white soft tissue that in aggregate measure 2.5 x 2 x 0.2 cm. The specimen is totally submitted in one cassette. / AM:yamilet 11/21/19 TC:1 CPT: 68578
== END | disposition home or self-care (01) ==
LOC: LABSPEC 11:15
PROVIDERS: PCP Family Medicine; Referring Provider Surgery; Visit Provider Surgery
DX: N63.10 Unspecified lump in the right breast, unspecified quadrant (principal)
CPT/HCPCS: 88305

== ENCOUNTER → 2022-11-17 | Outpatient (CLI) | payer OTHER, SELFPAY ==
--- NOTE | 2022-11-17 14:22 | US_ITS ---
STUDY: ULTRASOUND OF THE FEMALE PELVIS - COMPLETE REASON FOR EXAM: Female, 32 years old. PELVIC PAIN, ENDOMETRIOSIS LMP: November 11, 2022. TECHNIQUE: Transvaginal TECHNICAL QUALITY: Adequate. COMPARISON: None. FINDINGS: The uterus is anteverted and is in a midline position. The uterus measures 9.3 cm x 5.4 cm x 4.2 cm. There is a Nabothian cyst of the cervix. The endometrium measures 6.8 mm in thickness, and is heterogeneous (striated). There is no demonstrated endometrial mass. Heterogeneous echotexture of the myometrium suggesting fibroid change although no distinct focal fibroid is seen. I.U.D. - The patient does not have an I.U.D. The right ovary is visualized. The right ovary measures 4.4 cm x 3.4 cm x 1.6 cm. There is no right ovarian cyst or ovarian mass. There is no visualized right adnexal mass or complex lesion. There is normal arterial and normal venous vascularity. The left ovary is visualized. The left ovary measures 3.3 cm x 2.5 cm x 2.1 cm. There is no left ovarian cyst or ovarian mass. There is no visualized left adnexal mass or complex lesion. There is normal arterial and normal venous vascularity. There is no fluid in the cul-de-sac. The pre void volume of the bladder was 580 ml. US/Pelvic w/ Transvaginal IMPRESSION: Heterogeneous echotexture of the myometrium suggesting fibroid change although no distinct focal fibroid is seen. Electronically Signed: Rojelio Mcmullen MD at 12:32 EDT ,
== END | disposition home or self-care (01) ==
LOC: US 14:20
PROVIDERS: PCP Family Medicine; Referring Provider Family Medicine; Visit Provider Family Medicine
DX: R10.2 Pelvic and perineal pain (principal)
CPT/HCPCS: 76830; 76856

== ENCOUNTER → 2024-08-16 | Outpatient (CLI) | payer OTHER, SELFPAY ==
[2024-08-21 16:08] LABS: HPV APTIMA, High Risk Negative (Negative)
== END | disposition home or self-care (01) ==
LOC: LABSPEC 09:45
PROVIDERS: PCP Family Medicine; Referring Provider Nurse Practitioner Family; Visit Provider Nurse Practitioner Family
DX: Z12.4 Encounter for screening for malignant neoplasm of cervix (principal)
CPT/HCPCS: 87624; 88175; G0145

== ENCOUNTER → 2024-09-13 | Outpatient (CLI) | payer OTHER, SELFPAY ==
--- NOTE | 2024-09-13 14:29 | US_ITS ---
PROCEDURE: PELVIC W/ TRANSVAGINAL REASON FOR EXAM: PELVIC PAIN TECHNIQUE: PELVIC W/ TRANSVAGINAL COMPARISON: Prior study dated November 18, 2022. FINDINGS: Measurements: Uterus: 8 cm x 5.8 cm x 4.8 cm with a volume of 90.85 mL Endometrial Thickness: 12 mm. It is hyperechoic and vascularity with cystic areas. Right Ovary: 3.5 cm x 2.2 cm x 1.5 cm with a volume of 8.15 mL. Left Ovary: 2.9 cm x 2 cm x 1.6 cm with a volume of 7.3 mL. TRANSABDOMINAL: Uterus: Unremarkable Endometrium: Heterogeneous thickening of the endometrium with vascularity. Cystic changes are seen. Clinical correlation recommended. Right ovary: Normal size and echotexture. Left ovary: Normal size and echotexture. Other: No large pelvic mass identified. Transvaginal sonography was performed to better visualize the endometrium. TRANSVAGINAL: Uterus: Anteverted. Nabothian cyst. Endometrium: Heterogeneously thickened. Increased vascularity. Clinical correlation recommended. Right ovary: Normal size and echotexture. Left ovary: Normal size and echotexture. Other adnexal findings: None. Cul-de-sac: No free intraperitoneal fluid identified. Tenderness: No tenderness US/Pelvic w/ Transvaginal IMPRESSION: Endometrial thickening as described. Clinical correlation recommended. Reading Location: [id number]
== END | disposition home or self-care (01) ==
LOC: OPUS 14:25
PROVIDERS: PCP Family Medicine; Referring Provider Nurse Practitioner Family; Visit Provider Nurse Practitioner Family
DX: R10.2 Pelvic and perineal pain (principal)
CPT/HCPCS: 76830; 76856

== ENCOUNTER → 2024-10-11 | Outpatient (CLI) | payer OTHER, SELFPAY ==
--- NOTE | 2024-10-11 11:00 | EMB_PTH ---
PATIENT: CIERA DELACRUZ [facility] U#:[id number] AGE/SX: 34/F ROOM: RE10/11/[address]: RYAN Santiago : 1990 BED: DIS: 10/11/2024 SPEC #: [id number] RECD: 10/11/24 12:46 STATUS: JOHNIE REQ #: [id number] SALUD: 10/11/24 11:[address]: Marisela Whitney NP DEPT: SURGICAL PATHOLOGY RECD BY: Uri Juarez ENTERED: 10/11/24 13:53 SP TYPE: ENDOM BX/C PLACIDO DR: Dr. Shonna Washington DO Tissues: A - Endometrium, NOS Procedures: Surgery Specimen Level IV HEADER OPERATION: Endometrial biopsy PRE-OP DIAGNOSIS: Abnormal uterine bleeding TISSUE SUBMITTED: A- Endometrial lining MICROSCOPIC DIAGNOSIS A. Endometrium, biopsy: Secretory endometrium. MICROSCOPIC DESCRIPTION Slides are reviewed. GROSS DESCRIPTION A. Received in formalin labeled with the patient's name and date of is a 2.8 x 2.2 x 0.3 cm aggregate of chong-pink tissue fragments. Entirely submitted in 1 cassette. SD 10/11/2024 CPT:98353
== END | disposition home or self-care (01) ==
LOC: LABSPEC 12:03
PROVIDERS: PCP Family Medicine; Visit Provider Nurse Practitioner Women's Health
DX: N93.9 Abnormal uterine and vaginal bleeding, unspecified (principal)
CPT/HCPCS: 88305

== ENCOUNTER → 2024-11-20 | Outpatient (CLI) | payer OTHER, SELFPAY ==
--- NOTE | 2024-11-20 16:23 | US_ITS ---
PROCEDURE: PELVIC W/ TRANSVAGINAL REASON FOR EXAM: ADENOMYOSIS TECHNIQUE: Procedure Code: USPELTVAG Modality: US Procedure: PELVIC W/ TRANSVAGINAL COMPARISON: September 13, 2024. FINDINGS: LMP: November 14, 2024. Measurements: Uterus: 8.2 cm x 4.3 cm x 3.5 cm with a volume of 64 mL Endometrial Thickness: 3 mm. It is hyperechoic. Right Ovary: 3.6 cm x 2.1 cm x 1.3 cm with a volume of 5 mL. Left Ovary: 3.2 cm x 2.2 cm x 1.7 cm with a volume of 6.1 mL. TRANSABDOMINAL: Uterus: Heterogeneous myometrial echotexture in keeping with fibroid change although no focal fibroid is seen. Endometrium: Unremarkable. Right ovary: Normal size and echotexture. Left ovary: Normal size and echotexture. Other: No large pelvic mass identified. Transvaginal sonography was performed to better visualize the endometrium. TRANSVAGINAL: Uterus: Anteverted. Myometrium appears heterogeneous. Endometrium: Normal echotexture. Right ovary: Normal size and echotexture. Left ovary: Normal size and echotexture. Other adnexal findings: None. Cul-de-sac: No free intraperitoneal fluid identified. Tenderness: No tenderness US/Pelvic w/ Transvaginal IMPRESSION: Heterogeneous appearance of the myometrium suggestive of fibroid change althoug h no focal fibroid is seen. Reading Location: [id number]
== END | disposition home or self-care (01) ==
LOC: US 16:21
PROVIDERS: PCP Family Medicine; Referring Provider Obstetrics & Gynecology; Visit Provider Obstetrics & Gynecology
DX: N80.03 Adenomyosis of the uterus (principal); R10.20 Pelvic and perineal pain unspecified side
CPT/HCPCS: 76830; 76856

== ENCOUNTER → 2024-12-05 | Outpatient (CLI) | payer OTHER, SELFPAY ==
[2024-12-05 12:19] LABS: Hematocrit 42.0 % (37-47); Hemoglobin 13.7 g/dL (12.0-15.0); Immature Granulocytes Count 0.010 X10^3/uL (0.0-0.0); Mean Corp Hgb Conc 32.6 g/dL (32-36); Mean Corpuscular Volume 93.3 fL (81-99); Mean Platelet Vol. 10.1 fl (6.2-12.0); NRBC Flagged by Analyzer 0 % (0-5); Platelet Count 232 K/mm3 (150-450); RBC Distribution Width CV 13.5 % (11.6-14.6); RBC Distribution Width SD 46.2 fl (35.1-43.9); Red Blood Count 4.50 M/mm3 (4.2-5.4); White Blood Count 5.4 K/mm3 (4.4-11.0)
== END | disposition home or self-care (01) ==
PROVIDERS: PCP Family Medicine; Referring Provider Obstetrics & Gynecology; Visit Provider Obstetrics & Gynecology
DX: N94.6 Dysmenorrhea, unspecified (principal); R14.0 Abdominal distension (gaseous)
CPT/HCPCS: 36415; 84443; 85025

== ENCOUNTER 2025-01-25 09:02 | Day surgery (SDC) | payer OTHER, SELFPAY ==
[2025-01-17 10:16] LABS: Magnesium 2.1 mg/dL (1.5-2.2)
[2025-01-25] VITALS (14 sets, daily range): BP systolic 96–108; BP diastolic 60–77; PULSE 49–74; RESP 14–18; TEMP 36.1–37.2; O2SAT 100; BMI 23.5
--- NOTE | 2025-01-25 09:15 | PRE.ANES_ITS ---
ASA Classification* ASA Classification ASA Classification: 2 Assessment & Plan Anesthesia* Anesthesia Assessment Anesthesia Assessment: Discussed sedation and/or anesthesia options, risks, benefits, and alternatives with patient/parents/legal guardian/POA. Questions invited. The patient/parents/legal guardian/POA seems to understand and agrees to proceed with anesthesia plan. Reviewed the physical assessment, medical history, allergy history and patient home medications list prior to surgery/procedure/anesthetic and documented any changes. Performed airway and anesthesia risk assessments. Anesthesia Type Anesthesia Type: General Anesthesia Focused Assessment* Airway Assessment Mouth opens: >3 cm Mallampati Score: II Labs Anesthesia Preop lab: CBC WBC, (4.4-11.0) 5.4 K/mm3 12/05/24, 08:58 RBC, (4.2-5.4) 4.50 M/mm3 12/05/24, 08:58 Hgb, (12.0-15.0) 13.7 g/dL 12/05/24, 08:58 Hct, (37-47) 42.0 % 12/05/24, 08:58 Plt Count, (150-450) 232 K/mm3 12/05/24, 08:58 CHEMISTRY Potassium, (3.5-5.1) 3.9 mmol/L 10/19/22, 11:00 Sodium, (136-145) 140 mmol/L 10/19/22, 11:00 Magnesium, (1.5-2.2) 2.1 mg/dL 01/17/25, 07:27 Phosphorus, (2.5-4.9) 3.4 mg/dL 10/19/22, 11:00 BUN, (7-18) 14 mg/dL 10/19/22, 11:00 Creatinine, (0.55-1.02) 0.86 mg/dL 10/19/22, 11:00 Glucose, (74-106) 89 mg/dL 10/19/22, 11:00 TSH, (0.300-4.200) 1.910 uIU/mL 12/05/24, 08:58 COAG HCG, Quant, (1-3) 36684 mIU/mL H 04/01/19, 16:28 Tst Clinic Negative 10/11/24, 11:03 Pre-Assessment Diagnosis/Proposed Procedure Planned Operative Procedure(s): (B) Hysterectomy,Total Vaginal, Bilateral Salpingectomy Anesthesia History 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 When Was Last Pacemaker Check QUESTION #4 FULL TEXT: You/Your Family Experience fever (hyperthermia) with Anesthesia Last Oral Intake Last Oral intake: Last Oral Intake NPO since Meds taken in AM with sips of water? 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 Female Yes 01/16/25 09:53 HX of Motion Sickness No 01/16/25 09:53 HX of N/V After Surgery No 01/16/25 09:53 Non-Smoker Yes 01/16/25 09:53 Duration of Surgery greater Yes 01/16/25 09:53 than 60 minutes Number of Risk Factors 3 01/16/25 09:53 PONV Score Moderate Risk 01/16/25 09:53 Height & Weight Height & Weight: Anesthesia: Height & Weight Height 5 ft 6 in 01/24/25 10:53 Weight: 65.771 kg 01/24/25 10:53 Respiratory Assessment Respiratory Assessment - truck railroad and bus motor mechanic: Respiratory Tract Infection Hx - truck railroad and 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 Has anyone observed you stop No 01/16/25 09:53 breathing during sleep? STOP Results Negative 01/16/25 09:53 QUESTION #5 FULL TEXT : Do you snore loudly (louder than talking or can be heard through closed doors)? 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 Specify any problems Hx of Preganancy in last 3 N/A 01/16/25 09:53 Months Nurse Filling Out Transfusion NBUCHER 01/16/25 09:53 & Questions: Date: 01/16/25 01/16/25 09:53 Time: 09:53 01/16/25 09:53 Patient unable to answer at this time (ie. confused, unrespo /Reproduction History /Reproductive History - truck railroad and bus motor mechanic: /Reproductive Hx- truck railroad and bus motor mechanic Hx Now No 01/16/25 09:53 Gestational Age (in weeks): EDC: Hx Hx Para Hx Section SAB No 01/16/25 09:53 Does the father of the baby or his family experience fever w Father of the baby Malignant Hypertension history comment Active Medications Active Medications: Current Medications Generic Name Dose Route Start Last Admin Trade Name Armando PRN Reason Stop Dose Admin Acetaminophen 1,000 mg 01/25/25 11:00 Acetaminophen 500 Mg Tablet PO 01/25/25 11:01 PREOP ONE Celecoxib 400 mg 01/25/25 11:00 Celecoxib 200 Mg Capsule PO 01/25/25 11:01 PREOP ONE Dexamethasone Sodium Phosphate 8 mg 01/25/25 11:00 Dexamethasone 4 Mg/Ml Vial IV 01/25/25 11:01 INTRAOP ONE Enoxaparin Sodium 40 mg 01/25/25 11:00 Enoxaparin 40 Mg/0.4 Ml Syringe SC 01/25/25 11:01 PREOP ONE Gabapentin 600 mg 01/25/25 11:00 Gabapentin 600 Mg Tablet PO 01/25/25 11:01 PREOP ONE Lactated Ringer's 1,000 mls @ 40 mls/hr 01/25/25 11:00 IV .Q25H PERRI Cefazolin Sodium 2 gm/ Sodium 110 mls @ 150 mls/hr 01/25/25 11:00 Chloride IV 01/25/25 11:43 INTRAOP ONE Metronidazole 500 mg in 100 mls @ 100 mls/hr 01/25/25 11:00 Flagyl IV 01/25/25 11:59 INTRAOP ONE Magnesium Sulfate 1 gm/ 102 mls @ 408 mls/hr 01/25/25 11:00 Dextrose IV 01/25/25 11:14 PREOP ONE Insulin Human Lispro 0 unit 01/25/25 11:00 Insulin Lispro 100 Unit/Ml Insuln.Pen SC 01/25/25 17:00 Q4H PRN PRN BG >/= 180, SEE PROTOCOL Protocol Ondansetron HCl 4 mg 01/25/25 11:00 Ondansetron 4 Mg/2 Ml Vial IV 01/25/25 11:01 INTRAOP ONE Phenazopyridine HCl 190 mg 01/25/25 11:00 Phenazopyridine 95 Mg Tablet PO 01/25/25 11:01 PREOP ONE Scopolamine HBr 1 patch 01/25/25 11:00 Scopolamine 1mg/72hr Patch TD 01/25/25 11:01 PREOP ONE PFSH Medical History Wears contact lenses Wears glasses Non-smoker Abdominal pain Acute otitis externa of right ear Acute otitis media, right Lump of right breast Bilateral breast cysts Home Medications ?Medication ?Instructions ?Recorded ?Last Taken ?Type relugolix 40 mg-estradiol 1 1 tab PO QDAY #30 tabs Unknown Rx mg-norethindrone acetate 0.5 mg tablet ([place]) Allergy/AdvReac Type Severity Reaction Status Date / Time red dye Allergy Unknown Verified 01/16/25 09:52 Family History Mother Endometriosis Father Multiple myeloma Surgical History Status post surgical removal of ganglion cyst H/O right knee surgery Social History adopted: No household members: spouse and children number of children: 2 current occupational status: employed 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 Vik Review of Systems (Anesthesia) ROS Narrative System reviewed and no additional complaints, except as documented.
[2025-01-25] MEDS: Magnesium 1 GM over 15 mins IV (09:34)
[2025-01-25 09:36] LABS: Internal QC Validated? YES +Cl - CLEAR BKGD; Pregnancy, Urine Negative Negative
[2025-01-25] MEDS: metroNIDAZOLE 500 MG/100 ML BAG 100 MG IV (10:02)
[2025-01-25] MEDS: Lactated Ringers 1,000 ML 40 ML IV (10:03)
--- NOTE | 2025-01-25 10:38 | HP.PCM_ITS ---
History and Physical Date of Admission: 01/25/25 Vital Signs 12/06/2507:14 12/14/2511:32 01/14/2514:00 Height 5 ft 6 in 5 ft 6 in 5 ft 6 in Weight: 145 lb 6 oz 147 lb 4 oz 142 lb 3 oz BMI 23.4 23.8 22.9 BP 109/76 117/82 H 127/78 H Blood Pressure Location Rt brachial Position Sitting Respiration 17 Pulse 57 L Pulse Source Monitor Temp 97.6 F L Pulse Oximetry (%) 100 Oxygen Delivery Method room air Intake Visit Reasons: Preop TVHBS Information Writer Required: No Is patient in pain?: Yes (pelvic normal discomfort) Allergies red dye Allergy (Verified 01/14/25 14:03) Unknown Medications ?Medication ?Instructions ?Recorded ?Confirmed ?Type relugolix 40 mg-estradiol 1 1 tab PO QDAY #30 tabs 11/01/24 01/14/25 Rx mg-norethindrone acetate 0.5 mg tablet (Myfembree) Post menopausal: No Patient : No : No [facility] Medical History Abdominal pain Acute otitis externa of right ear Acute otitis media, right Lump of right breast Bilateral breast cysts Surgical History Status post surgical removal of ganglion cyst H/O right knee surgery Family History Mother Endometriosis Father Multiple myeloma Social History adopted: No household members: spouse and children number of children: 2 current occupational status: employed 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 Chery HPI Preop TVHBS Details: Vital Signs 11/01/2512:27 12/06/2507:14 Height 5 ft 6 in 5 ft 6 in Weight: 145 lb 6 oz BMI 23.4 BP 109/76 Intake Visit Reasons: US follow up/SM *COPAY 20 Information Writer Required: No Is patient in pain?: No Allergies red dye Allergy (Verified 12/05/24 08:12) Unknown Medications ?Medication ?Instructions ?Recorded ?Confirmed ?Type relugolix 40 mg-estradiol 1 1 tab PO QDAY #30 tabs 11/01/24 12/05/24 Rx mg-norethindrone acetate 0.5 mg tablet (Myfembree) Post menopausal: No Patient : No : No [facility] Medical History Acute otitis externa of right ear Acute otitis media, right Lump of right breast Bilateral breast cysts Surgical History Status post surgical removal of ganglion cyst H/O right knee surgery Family History Mother Endometriosis Father Multiple myeloma Social History adopted: No household members: spouse and children number of children: 2 current occupational status: employed 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 Chery HPI US follow up/SM *COPAY 20 Details: HPI: The patient is a 34-year-old female with a history of chronic pelvic pain and adenomyosis presenting for follow-up. Chronic Pelvic Pain - Reports chronic pelvic pain, which she attributes to adenomyosis. - Describes pain as jolting when sitting and needles when performing abdominal exercises. - Has been on Myfembree for one month, noting slight improvement in pain but experiencing side effects that make her feel out of sorts. - Expresses a strong desire for a hysterectomy to alleviate symptoms. Menstrual History - Reports regular menstrual cycles with periods lasting six days. - Describes menstrual flow as heavy, requiring tampon changes every hour during work. - Experiences dyspareunia. Past Medical History - Adenomyosis - Chronic pelvic pain Past Surgical History - Two vaginal deliveries Past Diagnostic Results - Pelvic ultrasound: Consistent with adenomyosis. - Endometrial biopsy (September): Normal. - Pap smear (August): Normal, HPV negative. - Pap smear (date unspecified): ASCUS, HPV positive. 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 Date Name GA/Weeks Outcome Route Bth Weight Gen Labor Lgth Anesthesia Del [facility] Provider FOB 07/21/17 Jean Carlos 39 live - full term 7lbs 19.5in Male 12 hours epidural [facility] Rusty 11/09/19 Talon 38 live - full term NS VD [facility] [place] Delivery Date: 07/21/17 Last Updated by: Pooja Winter No complications Menigitis at 5 months old History 2 Elective abortions Hx Para 2 Spontaneous abortions Hx # Term Pregnancies Ectopic pregnancies Hx # Pregnancies Multiple births # of living children 2 Past Pregnancies Del. Date Name GA/Weeks Outcome Route Bth Weight Infant Gen Labor Lgth Anesthesia Del [facility] Provider FOB 07/21/17 Jean Carlos 39 live - full term 7lbs 19.5in Male 12 hours epidural [facility] Rusty 11/09/19 Talon 38 live - full term NS VD [facility] [place] Delivery Date: 07/21/17 Last Updated by: Pooja Winter No complications Menigitis at 5 months old Exam Const General: cooperative, healthy appearing, comfortable and no acute distress Orientation: alert [facility] Head: normal to inspection and normocephalic Ears: hearing grossly normal bilaterally and external ears normal Nose: external nose normal and nares normal Face and sinus: normal facial exam Neck Neck: normal visual inspection and no lymphadenopathy Thyroid: thyroid normal Chest Chest palpation & inspection: normal inspection of the chest Resp Effort & Inspection: normal respiratory effort Auscultation: clear to auscultation bilaterally Cardio Rate: regular rate Rhythm: regular rhythm Heart Sounds: S1 normal and S2 normal GI Inspection: normal to inspection and non-distended Palpation: soft and no hepatosplenomegaly Musc Other: gross motor intact no deficits, full bilateral strength Skin General: no rashes or lesions noted Neuro General: patient alert, patient awake, moves all extremities and no focal motor deficits Motor: muscle tone normal throughout Extrem General: normal to inspection and no pedal edema Psych Appearance: grossly normal Mental Status: mental status grossly normal Affect: normal affect Speech and Movement: speech and movement normal Coding Level of Care Code No Charge Diagnoses Adenomyosis N80.03 Dysmenorrhea N94.6 Pelvic pain R10.2 Additional Codes SDOH Screening - Does the patient want assistance with any of the above?: No ([id number]) Assessment and Plan Assessment and Plan (1) Adenomyosis: Status: Acute Comment: discussed options some improvement with myfembree but didn't tolerate side effects, plan TVHBS (2) Dysmenorrhea: Status: Acute Comment: Did not tolerate OCP in the past. (3) Pelvic pain: Status: Acute Comment: labs, us, pap, emb done. fialed myfembree. plan TVHBS Plan Assessment/Plan: # Adenomyosis of uterus (N80.03): - Ultrasound findings consistent with adenomyosis; normal endometrial biopsy and normal Pap smear with negative HPV reported. - Patient previously trialed Myfembree with slight improvement but undesirable menopausal-like side effects. - Discussed definitive surgical management with planned total vaginal hysterectomy and bilateral salpingectomy while preserving ovaries, anticipating natural menopause at a later time. - Reviewed risks including bleeding, infection, general anesthesia complications, and potential injury to adjacent structures (bladder, bowel, vasculature); explained that this is considered major surgery although frequently performed with favorable outcomes. - Advised that most patients are discharged the same day if pain is controlled, with a typical four-week recovery period and six weeks of pelvic rest (no intercourse). - Ordered complete blood count and thyroid function tests preoperatively; will schedule a preoperative visit approximately two weeks before surgery for final consents and instructions. # Excessive and frequent menstruation with regular cycle (N92.0): - Heavy menstrual bleeding lasting approximately six days each cycle, requiring tampon changes every hour at times. - Initiated Myfembree to reduce uterine bleeding; patient reports ongoing significant side effects with only minor improvement. - Definitive surgical resolution expected via hysterectomy. See Adenomyosis of uterus above for treatment/management plan. - Will check blood counts to assess for possible anemia. # Combined pelvic and perineal pain in female (R10.20): - Chronic pelvic pain with occasional jolting discomfort on sitting and dyspareunia likely related to uterine pathology. - Anticipate symptomatic relief following hysterectomy; educated that it may not fully resolve all discomfort but is the most appropriate next step. - Advised no heavy lifting for four weeks post-surgery and recommended gradual return to routine physical activities. - Instructed no intercourse for six weeks postoperatively to allow proper healing prior to the postoperative evaluation. Patient Instructions: - Blood tests (complete blood count and thyroid panel) were drawn today. - Based on your last normal Pap and negative HPV, you no longer need routine Pap tests. - Your total vaginal hysterectomy (removal of uterus and tubes, preserving ovaries) is being scheduled for January; our python architect will contact you soon to confirm the date. - A pre-operative visit will occur about two weeks before surgery to review consent forms, answer questions, and complete any additional labs. - Plan for same-day discharge: you?ll go home once you are eating, drinking, urinating, and controlling pain with oral medications. 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 - Avoid intercourse until your six-week follow-up so we can check healing. - Do not lift more than 30?40 pounds for four weeks. You may begin light walking and gentle exercise (basic free weights, stretching) a few days after surgery. - If you wish, you can schedule a colonoscopy before your surgery; arrange this at your convenience. UPDATE- I have seen the patient and performed any clinically relevant updates to the history and physical exam. Rachna May MD
--- NOTE | 2025-01-25 11:00 | HYST_PTH ---
PATIENT: CIERA DELACRUZ [place] [facility] [id number] AGE/SX: 34/F ROOM: RE01/25/[address]: Dr. Rachna May MD : 1990 BED: DIS: 01/25/2025 SPEC #: [id number] RECD: 01/25/25 13:03 STATUS: JOHNIE REOlvin #: [id number] SALUD: 01/25/25 11:[address]: Rachna May DEPT: SURGICAL PATHOLOGY RECD BY: Uri Juarez ENTERED: 01/25/25 14:25 SP TYPE: HYSTERECT OTHR DR: Dr. Shonna Washington, DO Tissues: A - Uterus, NOS Procedures: Surgery Specimen Level V HEADER OPERATION: ERAS, hysterectomy, total vaginal, left salpingectomy PRE-OP DIAGNOSIS: Adenomyosis, dysmenorrhea, pelvic pain TISSUE SUBMITTED: A- Uterus, cervix, left fallopian tube MICROSCOPIC DIAGNOSIS A. Uterus, cervix, left fallopian tube, hysterectomy and left salpingectomy: - Cervix: chronic inflammation. - Endometrium: weakly proliferative. - Myometrium: no specific pathologic change. - Serosa: no specific pathologic change. - Left fallopian tube: no specific pathologic change. MICROSCOPIC DESCRIPTION Slides are reviewed. GROSS DESCRIPTION A. Received in formalin labeled with the patient's name and date of . Designated as uterus, cervix, left fallopian tube is a 61 g, 7.3 x 3.8 x 3.0 cm uterus with detached adnexa. The serosa is chong-pink with focal possible adhesions. The attached cervix is chong-pink and focally erythematous, measuring 3.8 x 3.5 cm; the 1.7 cm os is probe patent and expelling hemorrhagic mucoid material. Mucus containing cysts are present. The specimen is oriented using the presumed posterior peritoneal reflection and is inked as follows: [id number] Opening reveals a 3.1 x 1.6 cm endometrial canal lined by pale-chong, granular endometrium that measures up to 0.2 cm thick. The myometrium is chong-pink and measures up to 1.3 cm thick. No definitive lesions are identified. The detached, left fallopian tube is chong-pink and fimbriated, 3.9 x 0.4 cm. Paratubal cysts are not identified. Knitter Mechanic sections are submitted as follows: A1: Anterior cervixA2: Posterior cervixA3: Anterior endomyometriumA4: Posterior endomyometriumA5: Left fallopian tubeA6: Possible serosal adhesions NE 5CPT:[id number]
[2025-01-25] MEDS: Lidocaine 1% (5 ml sdv) 5 ML Vial IV (11:21)
[2025-01-25] MEDS: Cefazolin 1 GM/5 ML Vial 2 GM IV (11:23)
[2025-01-25] MEDS: DiphenhydrAMINE 50 MG/ML Syringe 12.5 MG IV (11:25)
--- NOTE | 2025-01-25 11:26 | PCM.OPRPT ---
Multi Select Codes Urinary/Genital Urinary/Genital CPT Codes: 54843 TVH+BS/O <250gr uterus Operative Report (Standard) Operative Information Date of Procedure: 01/25/25 Pre-Operative Diagnosis: dysmenorrhea, pelvic pain Post-Operative Diagnosis: same Surgery/Procedure Performed: total vaginal hysterectomy left salpingectomy pulp cooker: Yes Echo Technician: Comfort Lee Tasks completed by family practice physician assistant: Opening & closing and Retracting Type of Anesthesia: General RN Documented Start/Stop Times: Operation Date: 01/25/25 11:00 Case Time Into Pre-Op 01/25/25 09:07 Out of Pre-Op 01/25/25 11:11 Anesthesia Start 01/25/25 11:16 Into Room 01/25/25 11:16 Procedure Start 01/25/25 11:39 Procedure End 01/25/25 12:38 Anesthesia End 01/25/25 12:52 Out of Room 01/25/25 12:52 Into Recovery 01/25/25 12:53 Into Phase II Recovery 01/25/25 14:32 Out of Recovery 01/25/25 14:32 Procedure Start Time: 11:39 Procedure Stop Time: 12:38 Select all DRAINS/GRAFTS/IMPLANTS that apply: Drains Drain details: hatch Estimated Blood Loss: 100 Specimen collected: Yes Description of specimen(s) removed: uterus tube left Description of surgery: Patient was taken to the operating room and was placed under general anesthesia was prepped and draped in normal sterile fashion in the dorsal lithotomy position. Preoperative antibiotics and SCDs and Hatch catheter was placed inside the bladder. Weighted speculum was placed in the vagina and the anterior and posterior lip of the cervix was grasped with 2 Kathie clamps and circumferentially injected with dilute vasopressin. A circumferential incision was made with a scalpel and the posterior cul-de-sac was entered into sharply and a longneck speculum was placed. The anterior cul-de-sac was also dissected down and entered into sharply and the uterosacral ligaments were clamped cut and suture ligated bilaterally followed by the cardinal ligaments which were Clamped cut and suture ligated bilaterally with 0 Monocryl. The uterus serially descended and progressive bites were taken bilaterally up to the level of the utero-ovarian ligament bilaterally which was clamped transected and double ligated with 0 Monocryl suture and 0 Vicryl free tie. Bilateral fallopian tubes and ovaries were visualized and noted be within normal limits left fallopian tbe was transected across the base with a Nette clamp and removed and sutured with 0 Vicryl suture. the right tube was unable to reached due to location it was adherent to the pelvic side wall and outside of the operative field of reach vaginally so the decision was made to leave it. Excellent hemostasis was noted. The vagina was closed with [id number] 0 Vicryl pop offs including the posterior and anterior peritoneum in the reapproximation. Excellent hemostasis was noted. All instruments removed from the vagina clear urine was noted at the end of the procedure. Surgical Findings: nl uterus tubes, and ovaries. Complications Complications: No
[2025-01-25] MEDS: fentaNYL 100 MCG/2 ML Ampul IV (12:17)
--- NOTE | 2025-01-25 12:57 | PCM.POST.ANE ---
Anesthesia: Postop Eval I Current Vital Signs Temperature: 97.2 F Pulse Rate: 68 Blood Pressure: 107/77 Respiratory Rate: 16 Pulse Ox: 100 Oxygen Delivery Method: Room Air Assessment Airway patent: Yes Spontaneous unlabored respirations: Yes Mental status: Awake and Calm nausea: No Vomiting: No Anesthesia Complication: No Fluid Hydration Crystalloid volume administer (ml): 1,200 Total IV fluid infused: 1,200 Progress Note Anesthesia document: Postop Eval 1 completed: Yes
--- NOTE | 2025-01-25 13:57 | POSTOPAN2_ITS ---
Anesthesia Postop Eval I Sum Postop Eval Completion status Anesthesia document: Postop Eval 1 completed: Yes Anesthesia Postop Eval I Summary Anesthesia Postop Eval I Summary: Anesthesia Postop Eval I: Assessment Summary Airway patent Yes 01/25/25 12:58 RUNNER ON.[email or web address] Spontaneous unlabored Yes 01/25/25 12:58 RUNNER ON.CARMENOBGuy respirations Mental status Awake,Calm 01/25/25 12:58 RUNNER ON.SKOBY nausea No 01/25/25 12:58 RUNNER ON.SKOBY Vomiting No 01/25/25 12:58 RUNNER ON.SKOBY Anesthesia Postop Eval I: Fluid Summary Crystalloid volume administer 1,200 01/25/25 12:58 RUNNER ON.SKOBY (ml) Colloids volume administered ( ml) Blood Product volume administered (ml) Total IV fluid infused 1,200 01/25/25 12:58 RUNNER ON.CARMENOBGuy Anesthesia Postop Eval I: Summary Notes Anesthesia Complication No 01/25/25 12:58 RUNNER ON.CARMENOBGuy Anesthesia Complication Comment: Post-operative progress note Anesthesia: Postop Eval II Evaluation Mental status: Awake Pain Level: 0 nausea: No Vomiting: No
--- NOTE | 2025-01-25 13:57 | PCM.POSTANE2 ---
Anesthesia Postop Eval I Sum Postop Eval Completion status Anesthesia document: Postop Eval 1 completed: Yes Anesthesia Postop Eval I Summary Anesthesia Postop Eval I Summary: Anesthesia Postop Eval I: Assessment Summary Airway patent Yes 01/25/25 12:58 FISH BAIT PROCESSING SUPERVISOR.SKOBY Spontaneous unlabored Yes 01/25/25 12:58 FISH BAIT PROCESSING SUPERVISOR.CARMENOBGuy respirations Mental status Awake,Calm 01/25/25 12:58 FISH BAIT PROCESSING SUPERVISOR.SKOBY nausea No 01/25/25 12:58 FISH BAIT PROCESSING SUPERVISOR.SKOBY Vomiting No 01/25/25 12:58 FISH BAIT PROCESSING SUPERVISOR.SKOBY Anesthesia Postop Eval I: Fluid Summary Crystalloid volume administer 1,200 01/25/25 12:58 FISH BAIT PROCESSING SUPERVISOR.SKOBY (ml) Colloids volume administered ( ml) Blood Product volume administered (ml) Total IV fluid infused 1,200 01/25/25 12:58 FISH BAIT PROCESSING SUPERVISOR.CARMENOBGuy Anesthesia Postop Eval I: Summary Notes Anesthesia Complication No 01/25/25 12:58 FISH BAIT PROCESSING SUPERVISOR.CARMENOBGuy Anesthesia Complication Comment: Post-operative progress note Anesthesia: Postop Eval II Evaluation Mental status: Awake Pain Level: 0 nausea: No Vomiting: No
[2025-01-25] MEDS: Ketorolac 30 MG/ML Syringe IV (14:27)
[2025-01-25 16:28] LABS: Hematocrit 39.3 % (37-47); Hemoglobin 12.7 g/dL (12.0-15.0); Mean Corp Hgb Conc 32.3 g/dL (32-36); Mean Corpuscular Volume 93.3 fL (81-99); Mean Platelet Vol. 9.7 fl (6.2-12.0); Platelet Count 223 K/mm3 (150-450); RBC Distribution Width CV 13.3 % (11.6-14.6); RBC Distribution Width SD 45.8 fl (35.1-43.9); Red Blood Count 4.21 M/mm3 (4.2-5.4); White Blood Count 12.1 K/mm3 (4.4-11.0)
--- NOTE | 2025-01-25 16:34 | PCM.DC ---
Discharge Instructions DC O2, CPAP, BIPAP needs Home O2 Discharge instructions: No Dressing / Incision Discharge Activity: Return to Normal Activity, May Not Drive (while taking narcotic pain medications.) and May Shower May resume sexual activity in: 6-8 weeks Dressing / Incision Call your doctor if your incision/area has: Continuous Slow Oozing, Sudden Increased Bleeding, Increased Pain/ Swelling, Increased Redness and Foul Smelling Discharge Call your doctor if you observe: Fever of 101 or Higher, Inability to urinate, Inability to have a bowel movement and Using more than 1 pad per hour Follow Up Care Please Follow Up With: Rachna May MD Test Results: Test results from this visit will be discussed in further detail at your follow-up appointment, if applicable. Discharge Plan Admission Attending Provider: Rachna May Primary Care Provider: Shonna Washington Instructions Print Language: Frisian Discharge Orders/Prescriptions Prescriptions: New oxycodone-acetaminophen [Percocet] 5-325 mg tablet 1 tab PO Q4H PRN (Reason: pain) 7 Days Qty: 20 0RF naproxen 500 mg tablet 500 mg PO BID PRN PRN (Reason: Pain) Qty: 30 1RF Discontinued Myfembree 40-1-0.5 mg tablet 1 tab PO QDAY Qty: 30 3RF Referrals / Follow Up: Shonna Washington DO [Primary Care Provider, Family Practice] Disposition Disposition (needs filled in before D/C Order can be placed): Home, Self Care
== END 2025-01-25 17:17 | disposition home or self-care (01) ==
LOC: SDC 09:02 → AC 09:03
PROVIDERS: Anesthesiology; PCP Family Medicine; Referring Provider Obstetrics & Gynecology; Visit Provider Obstetrics & Gynecology
PROC: (CPT 58260; principal; 2025-01-25 10:40)
DX: N94.6 Dysmenorrhea, unspecified (principal); N80.03 Adenomyosis of the uterus; N92.0 Excessive and frequent menstruation with regular cycle; N72 Inflammatory disease of cervix uteri
CPT/HCPCS: 58262; 00944; 36415; 81025; 82962; 83735; 85027; 86850; 86900; 86901; 88307; J2405; J3475